=== PATIENT | male | born 1955 | race Caucasian/White ===

== ENCOUNTER 2018-01-27 12:49 | Emergency (ER) | payer OTHER, BC ==
[~2018-01-27] VITALS: Ht 185.4 cm; Wt 87.0 kg
[~2018-01-27 12:49] MED LIST: CENTRUM MEN'S1 EACH PO; FISH OIL 1,0001 EA11 PO; LIPITOR40 MG PO; PLAVIX75 MG PO; TOPROL XL50 MG PO; ZESTRIL10 MG PO
[2018-01-27 14:31] VITALS: BP 143/64
== END 2018-01-27 14:32 | disposition home or self-care (01) ==
LOC: EME 12:49
DX: R04.0 Epistaxis (principal); I25.2 Old myocardial infarction; I10 Essential (primary) hypertension; E78.00 Pure hypercholesterolemia, unspecified; Z95.5 Presence of coronary angioplasty implant and graft; Z79.02 Long term (current) use of antithrombotics/antiplatelets; Z87.891 Personal history of nicotine dependence
CPT/HCPCS: 80048; 85025; 85610; 85730; 99281; 99284